=== PATIENT | female | born 1975 | race Caucasian/White ===

== ENCOUNTER 2023-12-17 10:21 | Outpatient (CLI) | payer BC, SELFPAY ==
--- OUTSIDE RECORDS SUMMARY | 2023-12-17 10:26 | XMS_ITS | Clinical Summary ---
Author Name Unknown Organization [facility] Address [address] [place] [address] Care Team Providers Care Wire Dropper Name Role Phone Kathia Montoya D.O. Primary Care Provider Source Comments Patient records contain information from all sites at [facility]. For routine questions regarding patient records, call [phone] during business hours, M-F 8:00 AM - 5:00 PM Central Time. Record requests for emergency care only can be directed to [phone] at any time.[facility] Allergies No known active allergies Medications Medication Sig Dispensed Refills Start Date End Date Status diclofenac sodium (VOLTAREN) 1 % gel Apply 2 g topically 4 (four) times a day for 10 days. Apply to are of pain as needed. 4100 g 0 09/03/2023 Active ketoconazole (NIZORAL) 2 % cream MASSAGE INTO AFFECTED NAILS AND NAIL BED DAILY, ONGOING 0 07/15/2023 Active cyclobenzaprine (FLEXERIL) 10 mg tabletIndications: Pain Low Back Chronic,Lumbago With Sciatica Left Side,Radiculopathy Lumbar,Muscle Spasm Of Back Take 1 tablet (10 mg total) by mouth at bedtime as needed for muscle spasms. 30 tablet 1 09/17/2023 Active gabapentin (NEURONTIN) 300 mg capsuleIndications :Pain Low Back Chronic,Lumbago With Sciatica Left Side,Radiculopathy Lumbar Day one to 3 -oneat hs Day 3 and 5 increase one twice a day Day 6 one every 8 hours 90 capsule 3 09/17/2023 Active naproxen (NAPROSYN) 500 mg tabletIndications: Pain Low Back Chronic,Lumbago With Sciatica Left Side,Radiculopathy Lumbar Take 1 tablet (500 mg total) by mouth 2 (two) times a day with meals. 60 tablet 11 09/17/2023 09/16/2024 Active lidocaine (LIDODERM) 5 % adhesive patch,medicated Place 1 patch on the skin daily. Apply to area of pain as needed . 90 patch 0 09/03/2023 12/02/2023 Active Problems Problem Noted Date Diagnosed Date Depression Major One Episode Mild 08/16/2009 Overview: DEPRESS DISORDER-MILD Encounters Date Type Department Care Team Description 10/18/2023 Orders Only Department of Family Medicine, [facility], in [place], [place] [address] [place] [phone] Kathia Montoya D.OMaryse 10/17/2023 Clinical Communication Department of Family Medicine, [facility], in [place], [place] [address] [place] [phone] Kathia Montoya D.OMaryse 10/11/2023 Orders Only Department of Pain Medicine in [place], [place] [address] [place] [address] Fidelina Gomez RSara Pain Low Back Chronic (Primary Dx) 10/07/2023 12:53 PM AIRPORT TRAFFIC CONTROLLER - 10/07/2023 11:59 PM AIRPORT TRAFFIC CONTROLLER Hospital Encounter Department of Radiology in [place], [place] [address] [place] [phone] Kathia Montoya D.O. Pain Low Back Chronic; Lumbago With Sciatica Left Side; Radiculopathy Lumbar Discharge Disposition: Home or Self Care 09/17/2023 9:14 AM AIRPORT TRAFFIC CONTROLLER - 09/17/2023 11:59 PM AIRPORT TRAFFIC CONTROLLER Hospital Encounter Department of Radiology in [place], [place] [address] [place] [phone] Kathia Montoya D.OMaryse Pain Low Back Chronic; Lumbago With Sciatica Left Side; Radiculopathy Lumbar Discharge Disposition: Home or Self Care 09/17/2023 8:30 AM AIRPORT TRAFFIC CONTROLLER Office Visit Department of Family Medicine, [facility], in [place], [place] [address] [place] [phone] Kathia Montoya D.O. Pain Low Back Chronic (Primary Dx); Lumbago With Sciatica Left Side; Radiculopathy Lumbar; Muscle Spasm Of Back; Screening Mammogram Breast Cancer; Screening Cancer Colon; Need Vaccine Immunization Herpes Zoster; Fatigue; Wellness Screening from Last 3 Months Immunizations Name Administration Dates Next Due DTaP (Infanrix, Tripedia) 03/02/2008 Influenza, Unspecified 09/15/2007 RZV (SHINGRIX) 09/17/2023 Td (Adult), adsorbed 03/02/2008 Family History Medical History Relation Name Comments Diabetes Brother Schizophrenia Brother Suicide Father Breast cancer Grandmother 1 paternal Colon cancer Grandmother 2 maternal Relation Name Status Comments Brother Father Grandmother 1 paternal Grandmother 2 maternal Mother Alive Social History Tobacco Use Types Packs/Day Years Used Date Smoking Tobacco: Former Passive Smoke Exposure: Never Smokeless Tobacco: Never Tobacco Cessation:Counseling Given: Not Answered Alcohol Use Standard Drinks/Week Comments Yes 1 (1 standard drink = 0.6 oz pur e alcohol) PHQ-2 Answer Date Recorded PHQ-2 Score 0 09/17/2023 Depression Answer Date Recor ded PHQ-9 Total Score (max 27) 1 09/17 Nutrition Answer Date Recorded Nutrition: EVOO Fat Source Unknown 09/03 Nutrition: Servings of Fruits/Vegetables per Day Not on file 09/03/2023 Dental Answer Date Recorded Dental: Regular Dentist Unknown 09/03/20 Sex and Gender Information Value Date Recorded Sex Assigned at Not on file Gender Identity Not on file Sexual Orientation Not on file Last Filed Vital Signs Vital Sign Reading Time Taken Comments Blood Pressure 120/85 09/17/2023 8:11 AM AIRPORT TRAFFIC CONTROLLER Pulse 98 09/17/2023 8:11 AM AIRPORT TRAFFIC CONTROLLER Temperature 36.1 ??C (96.9 ??F) 09/17/2023 8:11 AM CS T Respiratory Rate 14 09/17/2023 8:11 AM AIRPORT TRAFFIC CONTROLLER Oxygen Saturation 99% 09/03/2023 9:44 AM CDT Inhaled Oxygen Concentration - - Weight 75.6 kg (166 lb 10.7 oz) 09/17/2023 8:11 AM AIRPORT TRAFFIC CONTROLLER Height 164 cm (5' 4.57) 09/17/2023 8:11 AM AIRPORT TRAFFIC CONTROLLER Body Mass Index 28.11 09/17/2023 8:11 AM AIRPORT TRAFFIC CONTROLLER Plan of Treatment Health Maintenance Due Date Last Done Comments CT Colonography 1973 Cologuard 1973 Colonoscopy 1973 Colorectal Cancer Screening 1973 FIT 1973 Fasting Glucose for Diabetes Screening 1973 Hepatitis B Vaccines (1 of 3 - 3-dose series) 1973 Lipid (Cholesterol) Screening 1973 Mammogram 1973 Cervical Cancer Screening 03/17/2023 03/17/2020, Zoster Vaccines (2 of 2) 11/12/2023 09/17/2023 Depression Monitoring (PHQ-9) 01/16/2024 09/17/2023 Influenza Vaccine (#1) 2024 7, 08/22/2016, 08/24/2015, Additional history exists Postponed from 08/04/2023 (Patient Refused) COVID-19 Vaccine (#1) 09/17/2024 Postpo lamar from 1973 (Patient Refused) HIV Screening 09/17/2024 Postponed from 1973 (Patient Refused) Hepatitis C Screening 09/17/2024 Postpo lamar from 1973 (Patient Refused) DTaP,Tdap,and Td Vaccines (4 - Td or Tdap) 03/17/2030 03/17/2020, 03/02/2008, 03/02/2008 Pneumococcal vaccine (0-64 years) Aged Out No longer eligible based on patient's age to complete this topic Procedures Procedure Name Priority Date/Time Associated Diagnosis Comments MR LUMBAR SPINE WITHOUT IV CONTRAST RAD - Routine (most inpatients and all outpatients) 10/07/2023 2:10 PM AIRPORT TRAFFIC CONTROLLER Pain Low Back Chronic Lumbago With Sciatica Left Side Radiculopathy Lumbar DX LUMBAR SPINE 2-3 VIEWS RAD - Routine (most inpatients and all outpatients) 09/17/2023 9:28 AM AIRPORT TRAFFIC CONTROLLER Pain Low Back Chronic Lumbago With Sciatica Left Side Radiculopathy Lumbar from Last 3 Months Results * MR Lumbar Spine without IV Contrast (10/07/2023 2:10 PM AIRPORT TRAFFIC CONTROLLER) Anatomical Region Laterality Modality Lumbar Spine, Neuroradiology RST LOS, Neuroradiology ARZ LOS, Neuroradiology FLA LOS N/A Magnetic Resonance 10/07/2023 2:37 PM AIRPORT TRAFFIC CONTROLLER Impressions 10/07/2023 2:45 PM AIRPORT TRAFFIC CONTROLLER 1. Left central disc extrusion at L5-S1 results in effacement of the left lateral recess and mass effect on the traversing left S1 nerve root. Narrative 10/07/2023 2:45 PM AIRPORT TRAFFIC CONTROLLER EXAM: ??MR LUMBAR SPINE WITHOUT IV CONTRAST COMPARISON: ??None FINDINGS: ?? L2-3: ??Diffuse disc bulge. Moderate bilateral facet arthritis. No neuroforaminal or spinal canal stenosis. L3-4: ??Diffuse disc bulge. Moderate bilateral facet arthritis. No neuroforaminal or spinal canal stenosis. L4-5: ??Diffuse disc bulge. Moderate bilateral facet osteoarthritis. No neuroforaminal or spinal canal stenosis. L5-S1: ??Diffuse disc bulge with caudally directed left central disc extrusion which effaces the left lateral recess and exerts mass effect on the traversing S1 nerve root. Alignment: ??Normal Bone Marrow: ??Normal Conus: ??Normal termination Extra-spinal Findings: ??No significant incidental findings For the purpose of this report, 5 lumbar type vertebral bodies are assumed. ??Close radiographic correlation recommended prior to any spinal intervention or surgery. Procedure Note Jorge Ruth M.D. - 10/07/2023 EXAM: MR LUMBAR SPINE WITHOUT IV CONTRAST COMPARISON: None FINDINGS: L2-3: Diffuse disc bulge. Moderate bilateral facet arthritis. Noneuroforaminal or spinal canal stenosis. L3-4: Diffuse disc bulge. Moderate bilateral facet arthritis. Noneuroforaminal or spinal canal stenosis. L4-5: Diffuse disc bulge. Moderate bilateral facet osteoarthritis. Noneuroforaminal or spinal canal stenosis. L5-S1: Diffuse disc bulge with caudally directed left central discextrusion which effaces the left lateral recess and exerts mass effect onthe traversing S1 nerve root. Alignment: Normal Bone Marrow: Normal Conus: Normal termination Extra-spinal Findings: No significant incidental findings For the purpose of this report, 5 lumbar type vertebral bodies areassumed. Close radiographic correlation recommended prior to any spinalintervention or surgery. IMPRESSION: 1. Left central disc extrusion at L5-S1 results in effacement of the leftlateral recess and mass effect on the traversing left S1 nerve root. Kathia Montoya D.O. IMG MRI PROCEDURES * DX Lumbar Spine 2-3 Views (09/17/2023 9:28 AM AIRPORT TRAFFIC CONTROLLER) Anatomical Region Laterality Modality Lumbar Spine, Musculoskeleta l RST LOS, Neuroradiology ARZ LOS, Muskuloskeletal FLA LOS N/A Digital Radiography 09/17/2023 9:32 AM AIRPORT TRAFFIC CONTROLLER Impressions 09/17/2023 9:34 AM AIRPORT TRAFFIC CONTROLLER Images are interpreted without comparison. 5 lumbar type vertebral bodies are noted. Minor levoconvex curvature. Maintenance of the usual lumbar lordosis. No listhesis. Vertebral body heights are normal. Minor intervertebral disc height loss L5-S1. No acute abnormality. Narrative 09/17/2023 9:34 AM AIRPORT TRAFFIC CONTROLLER EXAM: DX LUMBAR SPINE 2-3 VIEWS Procedure Note Otis Billings M.D. - 09/17/2023 EXAM: DX LUMBAR SPINE 2-3 VIEWS IMPRESSION: Images are interpreted without comparison. 5 lumbar type vertebral bodiesare noted. Minor levoconvex curvature. Maintenance of the usual lumbarlordosis. No listhesis. Vertebral body heights are normal. Minorintervertebral disc height loss L5-S1. No acute abnormality. Kathia Montoya D.O. IMG DIAGNOSTIC IMAGI NG PROCEDURES from Last 3 Months Care Teams Wire Dropper Relationship Specialty Start Date End Date Kathia Montoya D.O. [address] [phone] PCP - General Family Medicine 09/05/23
--- OUTSIDE RECORDS SUMMARY | 2023-12-17 10:26 | XMS_ITS | Encounter Summary ---
Author Name Unknown Organization [facility] Address [address] [place] [address] Care Team Providers Care Compliance Counsel Name Role Phone Kathia Montoya D.O. Primary Care Provider [phone] Reason for Referral * MRI/CAT/PET Scan (Routine) - Closed Specialty Diagnoses / Procedures Referred By Contac t Referred To Contact Radiology Diagnoses Pain Low Back Chronic Lumbago With Sciatica Left Side Radiculopathy Lumbar Procedures MR Lumbar Spine without IV Contrast MR Lumbar Spine without and with IV Contrast Kathia Montoya D.O. [address] [place] [phone] [facility] Region Referral ID Status Reason Start Date Expiration Date Visits Re quested Visits Authorized [id number] Closed 09/17/2023 09/16/2024 1 1 OR CLERK Reason for Visit * MRI/CAT/PET Scan (Routine) - Closed Specialty Diagnoses / Procedures Referred By Contac t Referred To Contact Radiology Diagnoses Pain Low Back Chronic Lumbago With Sciatica Left Side Radiculopathy Lumbar Procedures MR Lumbar Spine without IV Contrast MR Lumbar Spine without and with IV Contrast Kathia Montoya D.O. [address] [place] [phone] [facility] Region Referral ID Status Reason Start Date Expiration Date Visits Re quested Visits Authorized [id number] Closed 09/17/2023 09/16/2024 1 1 Encounter Details Date Type Department Care Team (Latest Contact Info) Description 10/07/2023 12:53 PM LIQUOR CLERK - 10/07/2023 11:59 PM LIQUOR CLERK Hospital Encounter Department of Radiology in [place], [place] [address] [place] [phone] Kathia Montoya D.O. [address] [place] [phone] Pain Low Back Chronic; Lumbago With Sciatica Left Side; Radiculopathy Lumbar Discharge Disposition: Home or Self Care Social History Tobacco Use Types Packs/Day Years Used Date Smoking Tobacco: Former Passive Smoke Exposure: Never Smokeless Tobacco: Never Alcohol Use Standard Drinks/Week Comments Yes 1 [...] Date Recorded Dental: Regular Dentist Unknown 09/03/20 23 Sex and Gender Information Value Date Recorded Sex Assigned at Not on file Gender Identity Not on file Sexual Orientation Not on file documented as of this encounter Medications at Time of Discharge Medication Sig Dispensed Refills Start Date End Date cyclobenzaprine (FLEXERIL) 10 mg tabletIndications:Pain Low Back Chronic,Lumbago With Sciatica Left Side,Radiculopathy Lumbar,Muscle Spasm Of Back Take 1 tablet (10 mg total) by mouth at bedtime as needed for muscle spasms. 30 tablet 1 09/17/2023 gabapentin (NEURONTIN) 300 mg capsuleIndications:Valerie n Low Back Chronic,Lumbago With Sciatica Left Side,Radiculopathy Lumbar Day one to 3 -oneat hs Day 3 and 5 increase one twice a day Day 6 one every 8 hours 90 capsule 3 09/17/2023 ketoconazole (NIZORAL) 2 % cream MASSAGE INTO AFFECTED NAILS AND NAIL BED DAILY, ONGOING 0 07/15/2023 naproxen (NAPROSYN) 500 mg tabletIndications:Pain Low Back Chronic,Lumbago With Sciatica Left Side,Radiculopathy Lumbar Take 1 tablet (500 mg total) by mouth 2 (two) times a day with meals. 60 tablet 11 09/17/2023 09/16/2024 lidocaine (LIDODERM) 5 % adhesive patch,medicated Place 1 patch on the skin daily. Apply to area of pain as needed . 90 patch 0 09/03/2023 12/02/2023 documented as of this encounter Miscellaneous Notes * Result Encounter Note - Kathia Montoya D.O. - 10/10/2023 11:23 AM LIQUOR CLERK Please call pt has on mri - left disc herniated affecting left side. Keep appointment with spine clinic. OR CLERK documented in this encounter Plan of Treatment Not on file documented as of this encounter Procedures Procedure Name Priority Date/Time Associated Diagnosis Comments MR LUMBAR SPINE WITHOUT IV CONTRAST RAD - Routine (most inpatients and all outpatients) 10/07/2023 2:10 PM LIQUOR CLERK Pain Low Back Chronic Lumbago With Sciatica Left Side Radiculopathy Lumbar documented in this encounter Results * MR Lumbar Spine without IV Contrast (10/07/2023 2:10 PM LIQUOR CLERK) Anatomical Region Laterality Modality Lumbar Spine, Neuroradiology RST [facility], Neuroradiology ARZ [facility], Neuroradiology FLA [facility] N/A Magnetic Resonance 10/07/2023 2:37 PM LIQUOR CLERK Impressions 10/07/2023 2:45 PM LIQUOR CLERK 1. Left central disc extrusion at L5-S1 results in effacement of the left lateral recess and mass effect on the traversing left S1 nerve root. Narrative 10/07/2023 2:45 PM LIQUOR CLERK EXAM: ??MR LUMBAR SPINE WITHOUT IV CONTRAST [...] root. Kathia Montoya D.O. IMG MRI PROCEDURES documented in this encounter Visit Diagnoses Diagnosis Pain Low Back Chronic Lumbago With Sciatica Left Side Radiculopathy Lumbar documented in this encounter Additional Health Concerns Assessment Noted Time PHQ-9 Depression Total Score: 1 09/17/20 23 8:10 AM LIQUOR CLERK documented as of this encounter Care Teams Compliance Counsel Relationship Specialty Start Date End Date Kathia Montoya D.O. [address] [place] [phone] PCP - General Family Medicine 09/05/23 documented as of this encounter
--- OUTSIDE RECORDS SUMMARY | 2023-12-17 10:26 | XMS_ITS | Encounter Summary ---
Author Name Unknown Organization [facility] Address [address] [place] [id number] Care Team Providers Care Business Technology Architect Name Role Phone None Reported, Pcp Primary Care Provider Unavail able Reason for Visit * Reason Comments Back Pain Encounter Details Date Type Department Care Team (Late st Contact Info) Description 09/03/2023 9:38 AM CDT - 09/03/2023 1:38 PM CDT Emergency [facility] Emergency Department [address] [place] [phone] Raulito Gardner P.A.-C. [address] [place] [phone] Pain Back (Primary Dx) Discharge Disposition: Home or Self Care Social History Tobacco Use Types Packs/Day Years Used Date Smoking Tobacco: Former Nutrition Answer Date Recorded Nutrition: EVOO Fat Source Unknown 09/03 Nutrition: Servings of Fruits/Vegetables per Day Not on file 09/03/2023 Dental Answer Date Recorded Dental: Regular Dentist Unknown 09/03/20 23 Sex and Gender Information Value Date Recorded Sex Assigned at Not on file Gender Identity Not on file Sexual Orientation Not on file documented as of this encounter Last Filed Vital Signs Vital Sign Reading Time Taken Comments Blood Pressure 141/95 09/03/2023 9:44 AM CDT Pulse 90 09/03/2023 9:44 AM CDT Temperature 36.7 ??C (98.1 ??F) 09/03/2023 9:44 AM CD T Respiratory Rate 17 09/03/2023 9:44 AM CDT Oxygen Saturation 99% 09/03/2023 9:44 AM CDT Inhaled Oxygen Concentration - - Weight 76.7 kg (169 lb 1.5 oz) 09/03/2023 9:40 A M CDT Height - - Body Mass Index 28.52 10/26/2014 1:21 PM STRAIGHT CUTTER documented in this encounter Discharge Instructions * Discharge Instructions* Raulito Gardner P.A.-C. - 09/03/2023 1:32 PM CDT I am sorry that you have been having some pain, but I am glad you are feeling better. As we discussed, this is most likely related to sciatica. Feel reassured that your exam otherwise is reassuring For this, we recommend Take naprosyn every 12 hours as needed for pain. Naprosyn is the antiinflammatory that builds in your system, so even if the first few doses do not seem to be helping, they should start to help over the next few days Take prednisone once a day for 5 days. This is a steroid that should help with inflammation Take tylenol as needed for pain Use voltaren gel and or lidoderm patches as needed for pain Take Flexeril every 12 hours or nightly as needed. This is a muscle relaxer that may make you droswsy so do not work, drive a car, or use heavy machinery while using. However, if can be helpful at night. Follow up with your primary care provider As always, if your symptoms worsen, or if you experience new symptoms, please seek immediate medical help. documented in this encounter Medications at Time of Discharge Medication Sig Dispensed Refills Start Date End Date diclofenac sodium (VOLTAREN) 1 % gel Apply 2 g topically 4 (four) times a day for 10 days. Apply to are of pain as needed. 4100 g 0 09/03/2023 ketoconazole (NIZORAL) 2 % cream MASSAGE INTO AFFECTED NAILS AND NAIL BED DAILY, ONGOING 0 07/15/2023 lidocaine (LIDODERM) 5 % adhesive patch,medicated Place 1 patch on the skin daily. Apply to area of pain as needed . 90 patch 0 09/03/2023 12/02/2023 predniSONE (DELTASONE) 20 mg tablet Take 1 tablet (20 mg total) by mouth daily for 5 days. 5 tablet 0 09/03/2023 09/08/2023 cyclobenzaprine (FLEXERIL) 10 mg tablet Take 1 tablet (10 mg total) by mouth at bedtime as needed for muscle spasms for up to 20 days. 20 tablet 0 09/03/2023 09/17/2023 naproxen (NAPROSYN) 500 mg tablet Take 1 tablet (500 mg total) by mouth 2 (two) times a day with meals. 60 tablet 11 09/03/2023 09/17/2023 documented as of this encounter Consult Notes * Janay Field PPantera., LoisP.T. - 09/03/2023 1:26 PM CDT Physical Therapy Evaluation and Treatment - Emergency Department SUBJECTIVE Patient's Name: Mariah Patel Referring/Attending Provider: Raulito Gardner P.A.-C. Visit Diagnosis: 1. Pain Back Reason for referral: PT evaluate and treat, emergency medicine Onset Date: History of Present Illness:Patient is a 48-year-old female who presents to the emergency departmentwith back pain which is now radiating down her left leg. Pain started about 1 month ago when she was moving furniture. See EMR for further information. Patient presents with complaints of back pain that is now radiating into her left leg. Payor: [facility] / Plan: [employer] / Product Type: PPO / PERTINENT MEDICAL / SURGICAL HISTORY: Patient Active Problem List Diagnosis Depression Major One Episode Mild (HCC) No past surgical history on file. Mariah Patel is a 48 y.o. female who presents to the Emergency Department with c/o back pain. Family/Caregiver Present: Yes (: Sindi) Patient/Caregiver Goals: decrease pain Patient Comments: Upon arrival, patient is agreeable for physical therapy evaluation. Her pain is currently rated 5/10 and is described as nagging, dull, sharp for the first time last night. Endorsesnumbness/tingling down left calf into the big toe. Pain started approximately 1 month ago when she was moving furniture. Pain is radiating down her left lower extremity since Saturday. Denies fall, bowel and bladder changes. Aggravating factors: sitting/standing for prolonged positions Relieving factors: Medications (patient ran out which is why she came to the ED), lying in prone with arms straight. Attempted to do some stretching/mobility exercises at home. Primary service was contacted and patient's status was discussed, Patient's nurse was contacted andpatient's status was discussed Prior Level of Function: Prior Function/Occupational Profile Lives With: Spouse ADL Assistance: Independent IADL/Homemaking Assistance: Independent Driving: Independent Prior Mobility/Functional Transfers Level of [place]: Independent OBJECTIVE Diagnostic Tests: Imaging No results found. Gait and Transfers: Gait not formally assessed Posture and Observation: normal Neuro Screen: Lower extremity sensation intact to light touch throughout except last L4 dermatome Range of Motion: Lumbar: Pain with flexion and side bending left Direction preference: extension (centralization) Limited flexion range of motion due to pain Hip: within normal limits throughout Special tests: Examined and normal. Mild guarding on the left due to pain Bed Mobility - Supine to Sit Level of Assistance: Independent Bed Mobility - Sit to Supine Level of Assistance: Independent Sit to Stand Transfers Transfer Surface: Bed Level of Assistance: Independent Assessment/Delivery: Assessed Stand to Sit Transfers Level of Assistance: Independent Assessment/Delivery: Assessed Outcome Measures: [facility] Mobility: 1. Turning from your back to your side while in a flat bed without using bedrails?: None 2. Moving from lying on your back to sitting on the side of a flat bed without using bedrails?: None 3. Moving to and from a bed to a chair (including a wheelchair)?: None 4. Standing up from a chair using your arms (e.g., wheelchair, or bedside chair)?: None 5. To walk in hospital room?: None 6. Climbing 3-5 steps with a railing?: None [facility] Basic Mobility (V.2) Raw Score: 24 [facility] Basic Mobility (V.2) Standardized Score: 57.68 Interpretation: Clinicians answer the [facility] Inpatient Short Form based on observed patient activity and/or clinical judgement (ie. patient can be scored without physically performing each activity) According to scoring guidelines: Those going to home had an average score of 20.1 Those going home with home care had an average score of 17.9 Those going to SNF had an average score of 14 Those going to IRF had an average score of 13.6 Those going to a LTAC had an average score of 11.5 TREATMENT Access Code: [email or web address] URL: [email or web address] Date: 09/03/2023 Prepared by: Janay Field Exercises - Supine Lower Trunk Rotation - 1 x daily - 7 x weekly - 1 sets - 10 reps - Supine Pelvic Tilt - 2 x daily - 7 x weekly - 1 sets - 10 reps - Supine Piriformis Stretch with Leg Straight - 2 x daily - 7 x weekly - 1 sets - 1-2 reps - 30-60 seconds hold - Child's Pose with Sidebending - 2 x daily - 7 x weekly - 1 sets - 1-2 reps - Cat Cow - 2 x daily - 7 x weekly - 1 sets - 10 reps - Supine LE Neural Mobilization - 2 x daily - 7 x weekly - 1 sets - 3-5 reps Home Exercise Program/Education: Patient instructed in home exercise program focused on lumbar mobility/stretching. Patient was provided verbal cueing and physical cueing for proper independent completion of exercises by end of session. Rationale of home exercises and expected outcomes were discussed. All patient questions were answered to the best of my ability. The following patient education materials were provided today: [employer]: Paper copy provided to patient Instructed patient on a icing parameters to decrease inflammation and for pain modulation. Ice 3 to4 times a day for 10-15 minutes. Allow skin to return back to normal temperature prior to administration of ice. Heat can be utilized prior to stretching for muscle relaxation and to increased blood circulation. The following education provided today: Exercise Education: - remain active Educated patient on role of physical therapy in management of symptoms and progression of focus from gentle mobility to core strengthening when appropriate. Recommended for patient to follow up with outpatient physical therapy for appropriate progression of home exercise program. Assessment Clinical Impression: Mariah Patel presents to the emergency department and physical therapy was consulted for back pain.Back pain started 1 month ago when she was moving furniture. Since last Saturday, she endorses left radicular symptoms. Examination findings are consistent with back pain with mobility deficits, left ra diculopathy, and extension preference. Examination findings were significant for mobility deficits/limited range of motion , weakness or reduced tissue capacity to tolerate loads, and reduced capacity/tolerance for exercise/activity. Functional deficits include difficulty with functional transfers and ambulation. Patient would benefit from further skilled physical therapy in order to improve range of motion/mobility, improve strength to allow for increased capacity of tissues to tolerate loads,and develop a plan of home exercises to improve their range of motion, fitness, strength, and/or tolerance for activity. The patient was instructed in a home program. The patient tolerated the above exercises well. Patient does not have primary care established and is planning on establishing primary care. She will follow up with outpatient PT as able. Rehab Potential: Ms. Patel has Excellent potential to achieve established physical therapy goals within the time frame outlined below, provided she actively participates in her physical therapy treatment plan and home program. Tiered PT Evaluation Codes: Comorbid Conditions: (See EMR for further information) Personal Factors: Body habitus Comorbid Conditions: (See EMR for further information) Examination elements: 4+ Clinical Presentation: Evolving Clinical Decision Making: Moderate complexity clinical decision making Barriers to Discharge Home: Barriers to Discharge Home: None Discharge Therapy Needs - PT: Ongoing skilled physical therapy (Recommended following up with outpatient physical therapy) Progress: All PT goals achieved Functional Goals and Timeframes: PT Goal #1: Patient will be able to teach back HEP without any verbal cues to continue performing exercises independently at home. PT Goal #1 Date: 09/03/23 PT Goal #1 Status: Achieved Plan Mariah Patel was educated regarding evaluative findings, diagnosis, prognosis, potential risks and benefits of rehabilitation interventions. A collaborative effort was used to establish goals and plan of care. She was informed of her right to make decisions regarding her care, including refusal of examination or treatment or selection of therapy services from another provider if desired. The treatment plan may be progressed or modified based upon her response to treatment. Treatment Plan: PT Frequency: One-time visit PT Duration: Plan: Discontinue PT PT Plan Comments: One time visit, emergency medicine Treatment interventions may include: Treatment/Interventions: Therapeutic exercise, Therapeutic functional activity, Self-care/home management Time Spent with Patient Evaluations PT Eval - Mod Complexity: 8 min Therapeutic Interventions Therapeutic Exercise (min): 15 min Time Tracking Total Timed Units (min): 15 min Total Treatment Time (min): 23 min Janay Field P.T., D.P.T. documented in this encounter ED Notes * Raulito Gardner P.A.-C. - 09/03/2023 1:28 PM CDT CHIEF COMPLAINT Back Pain HPI Mariah Patel is a 48 y.o. female with a medical history of depression, presenting to the rst-ER with complaints of back pain. The patient complains of left-sided lower back pain that began about a month ago, and has been constant and worsening since. Patient reports she has been seen by a chiropractor, as well as an urgent care provider, without complete relief. She denies any associated symptoms including no numbness, tingling, incontinence, saddle anesthesia, or focal weakness, nor any recent fever, chills, shortness of breath, chest pain, nausea, emesis, abdominal pain, urinary symptoms or other complaints. Currently, they rate their pain as a 7/10, with a sharp electric quality, and radiation into outer left leg. They note movement as provoking, while denying any palliating factors History provided by: Patient, and medical records MEDICAL HISTORY No past medical history on file. SURGICAL HISTORY No past surgical history on file. FAMILY HISTORY Family History Problem Relation Age of Onset Diabetes Brother Schizophrenia Brother Breast cancer Grandmother Colon cancer Grandmother 60 SOCIAL HISTORY Social History Socioeconomic History Marital status: Tobacco Use Smoking status: Former REVIEW OF SYSTEMS MSK: Back pain ? PHYSICAL EXAM Vitals: 09/03/23 0944 BP: (!) 141/95 Pulse: 90 Resp: 17 Temp: 36.7 ??C SpO2: 99% Constitutional: Nursing note and vitals reviewed. HENT: Head: Normocephalic and atraumatic. Mouth/Throat: Mucous membranes are moist. Eyes: Conjunctivae are normal. Neck: No midline spinal tenderness. No paraspinal muscle tenderness. No step offs. No overlying signs of trauma Cardiovascular: Normal rate. Pulmonary/Chest: Effort normal. No tachypnea. Musculoskeletal: Comments: BACK: No midline spinal tenderness. Left lower lumbar into buttock paraspinal muscle tenderness. No step offs. No overlying signs of trauma Neurological: Alert. Skin: Skin is warm and dry. ? DIFFERENTIAL Mariah Patel is a 48 y.o. female with a medical history of depression, presenting to the rst-ER with complaints of back pain. My current working diagnosis is a musculoskeletal strain vs spasm secondary to their history of lifting and physical exam with reproducible tenderness. However, I did think about a differential including sciatica, herniated disk, overuse, stress fracture, zoster, rib injury, nephrolithiasis, pyelo, and much less likely of cauda equina syndrome, infection, malignancy, traumatic injury, ankylosing spondylitis. However, these are extremely unlikely as the patient denies any incontinence, paresthesias, or saddle anesthesia, and secondary to an exam without any muscle weakness, sensation loss, abnormal I did consider getting an MRI given the patient's back pain. However given lack of red flag symptoms along with otherwise reassuring exam we will defer at this time. ASSESSMENT & PLAN Physical therapy saw patient, and we will discharge home with exercises. do believe that she needs physical therapy as an outpatient. However needs to get primary care provider in the meantime. In the meantime we will get symptomatic cares, and close follow up. Please see the ED course for additional evaluation, imaging and laboratory findings, and further medical decision-making. ED COURSE ED Course as of 09/03/231953e Sep 03, 2023 1218 I reviewed the patient's chart. This includes but is not limited to prior inpatient records, prior outpatient and office records, prior radiology scans, an outside ED reports. 1220 I met with the patient for an initial history and physical exam 1233 Spoke with PT 1332 I rechecked on the patient. PT has seen patient., recommends discharge pcp follow up and PT 1332 At discharge, patient was tolerating a regular diet, = their symptoms were well-controlled, and they were able to void spontaneously. Patient was educated and provided information on their diagnosis. Patients will follow up with their primary care provider as needed on an out patient basis. Strict return precautions were discussed. Patient verbalizes understanding, agrees to the plan, and acknowledges to return with new or worsening symptoms. patient tolerating oral medications and will besent home with similar cares. Medications and side effects were also discussed with patient, and itis recommended that they read all package inserts to the meds. Final Diagnoses: as of 09/03/231953 Pain Back DIAGNOSIS Pain Back Other orders - diclofenac sodium (VOLTAREN) 1 % gel - lidocaine (LIDODERM) 5 % adhesive patch,medicated - cyclobenzaprine (FLEXERIL) 10 mg tablet - naproxen (NAPROSYN) 500 mg tablet - predniSONE (DELTASONE) 20 mg tablet ? Raulito Gardner PA-C pager: [phone] [facility] Emergency Department [address] [facility] [phone] Raulito Gardner P.A.-C. 09/03/231953 * Francie Israel R.N. - 09/03/2023 9:42 AM CDT Patient presents with complaints of back pain that is now radiating into her left leg. She states she was moving furniture about a month ago and the pain started the next day. Taking Naproxen and Cyclobenzaprine for the pain, her prescription ended yesterday. States she took four Ibuprofen this morning. Francie Israel R.N. 09/03/239[address] documented in this encounter Plan of Treatment Not on file documented as of this encounter Visit Diagnoses Diagnosis Pain Back- Primary documented in this encounter Administered Medications Inactive Administered Medications - up to 3 most recent administrations Medication Order MAR Action Action Date Dose Rate Site ketorolac injection 15 mg (TORADOL) 15 mg, intramuscular, Once, On Sat09/03/23 at 1233, For 1 dose, Adult IV push rate: Over 15 seconds. Peds IV push rate: Over 1 minute. Doses > 15 mg IV/IM are discouraged due to lack of additional analgesic benefit. Given 09/03/2023 1:02 PM CDT 15 mg Right Deltoid lidocaine 5 % 1 patch (LIDODERM) 1 patch, transdermal, Administer over 12 Hours, Once, On Sat09/03/23 at 1233, For 1 dose, Remove after 12 hours. Medication Applied 09/03/2023 1:02 PM CDT 1 patch Lower Back documented in this encounter Active and Recently Administered Medications Times are shown in CDT. Scheduled Medication Order 09/01/2023 09/02/2023 09/03/2023 ketorolac injection 15 mg (TORADOL) (COMPLETED) 15 mg, intramuscular, Once, On Sat09/03/23 at 1233, For 1 dose, Adult IV push rate: Over 15 seconds. Peds IV push rate: Over 1 minute. Doses > 15 mg IV/IM are discouraged due to lack of additional analgesic benefit. 1302 (Given - Provid er: Autumn Siddiqui R.N.) lidocaine 5 % 1 patch (LIDODERM) 1 patch, transdermal, Administer over 12 Hours, Once, On Sat09/03/23 at 1233, For 1 dose, Remove after 12 hours. 1302 (Medication Ilene lied - Provider: Autumn Siddiqui R.N.)1338 (Due: Medication Removed - Provider: Discharge Provider, Automatic - Comment: Time automatically adjusted from order being discontinued) documented in this encounter Additional Health Concerns Assessment Noted Time PHQ-9 Depression Total Score: 6 09/30/20 12 2:01 PM STRAIGHT CUTTER documented as of this encounter Care Teams Business Technology Architect Relationship Specialty Start Date End Date None Reported, Pcp PCP - General Family Medicine 09/03/23 09/04/23 documented as of this encounter
--- OUTSIDE RECORDS SUMMARY | 2023-12-17 10:26 | XMS_ITS | Encounter Summary ---
Author Name Unknown Organization [facility] Address [address] [place] [address] Care Team Providers Care Singing Teacher Name Role Phone Kathia Montoya D.O. Primary Care Provider Encounter Details Date Type Department Care Team (Late st Contact Info) Description 09/05/2023 Clinical Communication Department of Family Medicine, [facility], in [place], [place] [address], [place] [phone] Kathia Montoya D.O. [address] [place] [phone] Social History Tobacco Use Types Packs/Day Years Used Date Smoking Tobacco: Former PHQ-2 Answer Date Recorded PHQ-2 Score 0 [...] on file documented as of this encounter Miscellaneous Notes * Telephone Encounter - Princess Adam Cazares - 09/05/2023 3:38 PM CDT SUBJECTIVE CHIEF COMPLAINT / REASON FOR CALL Medication refill Information Discussed Message from provider given, patient has upcoming appt. No questions or concern PLAN Disposition/Recommendation: n/a Information/Education: patient/caller able to teach back Caller agreeable to plan of care: yes The following references were used: none * Telephone Encounter - Kathia Montoya D.O. - 09/05/2023 3:17 PM CDT Pt has not been seen since 2013 in FAMILY medicine. She was seen at [facility] on 09-03 and flexeril 10 mg one at bedtime as need 20 tablets . Give diclofenac and lidocaine and naprosyn and prednisone. OPERATOR documented in this encounter Plan of Treatment Not on file documented as of this encounter Visit Diagnoses Not on filedocumented in this encounter Additional Health Concerns Assessment Noted Time PHQ-9 Depression Total Score: 6 09/30/20 12 2:01 PM PARA OPERATOR documented as of this encounter Care Teams Singing Teacher Relationship Specialty Start Date End Date Kathia Montoya D.O. [address] [place] [phone] PCP - General Family Medicine 09/05/23 documented as of this encounter
--- OUTSIDE RECORDS SUMMARY | 2023-12-17 10:26 | XMS_ITS | Encounter Summary ---
Author Name Unknown Organization [facility] Address [address] [place] [address] Care Team Providers Care Line Construction Supervisor Name Role Phone Kathia Montoya D.O. Primary Care Provider Reason for Referral * Outpatient (Routine) - Authorized Specialty Diagnoses / Procedures Referred By Contac t Referred To Contact Diagnoses Pain Low Back Chronic Procedures DX Lumbar Spine Flexion Extension 2 Views Jaclyn Reeys APRN, C.N.P. [address] [place] [phone] [facility] Region Referral ID Status Reason Start Date Expiration Date V isits Requested Visits Authorized [id number] Authorized 10/11/2023 10/10/2024 1 1 CASE MAKER Encounter Details Date Type Department Care Team (Late st Contact Info) Description 10/11/2023 Orders Only Department of Pain Medicine in [place], [place] [address] [place] [phone] Fidelina Gomez, R.N. [address] [phone] Pain Low Back Chronic (Primary Dx) Social History Tobacco Use Types Packs/Day Years [...] on file documented as of this encounter Plan of Treatment Scheduled Orders Name Type Priority Associated Diagnoses Orde r Schedule DX Lumbar Spine Flexion Extension 2 Views Imaging RAD - Routine (most inpatients and all outpatients) Pain Low Back Chronic Expected: 10/11/2023 (Approximate), Expires: 01/09/2025 documented as of this encounter Visit Diagnoses Diagnosis Pain Low Back Chronic- Primary documented in this encounter Additional Health Concerns Assessment Noted Time PHQ-9 Depression Total Score: 1 09/17/20 8:10 AM SHOWCASE MAKER documented as of this encounter Care Teams Line Construction Supervisor Relationship Specialty Start Date End Date Kathia Montoya D.O. [address] [place] [phone] PCP - General Family Medicine 09/05/23 documented as of this encounter
--- OUTSIDE RECORDS SUMMARY | 2023-12-17 10:26 | XMS_ITS | Encounter Summary ---
Author Name Unknown Organization [facility] Address [address] [place] [address] Care Team Providers Care Paint Process Engineer Name Role Phone Kathia Montoya D.O. Primary Care Provider Reason for Referral * MRI/CAT/PET Scan (Routine) - Closed Specialty Diagnoses / Procedures Referred By Alexysac t Referred To Contact Radiology Diagnoses Pain Low Back Chronic Lumbago With Sciatica Left Side Radiculopathy Lumbar Procedures MR Lumbar Spine without IV Contrast MR Lumbar Spine without and with IV Contrast Kathia Montoya D.O. [address] [place] [phone] [facility] Region Referral ID Status Reason Start Date Expiration Date Visits Re quested Visits Authorized [id number] Closed 09/17/2023 09/16/2024 1 1 ISHER APPRENTICE * Outpatient (Routine) - Authorized Specialty Diagnoses / Procedures Referred By Contac t Referred To Contact Family Medicine Kathia Montoya D.O. [address] [place] [phone] [facility] Region Referral ID Status Reason Start Date Expiration Date V isits Requested Visits Authorized [id number] Authorized 09/17/2023 09/16/2026 1 1 ISHER APPRENTICE * Outpatient (Routine) - Authorized Specialty Diagnoses / Procedures Referred By Contac t Referred To Contact Diagnoses Screening Mammogram Breast Cancer Procedures BI Breast Screening Bilateral with Tomosynthesis Kathia Montoya D.O. [address] [place] [phone] [facility] Region Referral ID Status Reason Start Date Expiration Date V isits Requested Visits Authorized [id number] Authorized 09/17/2023 09/16/2024 1 1 ISHER APPRENTICE * Outpatient (Routine) - Authorized Specialty Diagnoses / Procedures Referred By Contac t Referred To Contact Pain Medicine Diagnoses Pain Low Back Chronic Lumbago With Sciatica Left Side Radiculopathy Lumbar Muscle Spasm Of Back Kathia Montoya D.O. [address] [place] [phone] [facility] Region Referral ID Status Reason Start Date Expiration Date V isits Requested Visits Authorized [id number] Authorized 09/17/2023 09/16/2024 1 1 ISHER APPRENTICE * Outpatient (Routine) - Closed Specialty Diagnoses / Procedures Referred By Contac t Referred To Contact Diagnoses Pain Low Back Chronic Lumbago With Sciatica Left Side Radiculopathy Lumbar Procedures DX Lumbar Spine 2-3 Views Kathia Montoya D.O. [address] [place] [phone] [facility] Region Referral ID Status Reason Start Date Expiration Date Visits Re quested Visits Authorized [id number] Closed 09/17/2023 09/16/2024 1 1 ISHER APPRENTICE Reason for Visit * Reason Comments Post Hospital Follow-up sciatica Establish Care * Appointment Request (Routine) - Closed Specialty Diagnoses / Procedures Referred By Contac t Referred To Contact Family Medicine Referral ID Status Reason Start Date Expiration Date Visits Re quested Visits Authorized [id number] Closed 09/05/2023 09/04/2024 1 1 Encounter Details Date Type Department Care Team (Late st Contact Info) Description 09/17/2023 8:30 AM VARNISHER APPRENTICE Office Visit Department of Family Medicine, [facility], in [place], [place] [address] [place] [phone] Kathia Montoya D.O. [address] [place] [phone] Pain Low Back Chronic (Primary Dx); Lumbago With Sciatica Left Side; Radiculopathy Lumbar; Muscle Spasm Of Back; Screening Mammogram Breast Cancer; Screening Cancer Colon; Need Vaccine Immunization Herpes Zoster; Fatigue; Wellness Screening Social History Tobacco Use Types Packs/Day Years [...] Comments Blood Pressure 120/85 09/17/2023 8:11 AM VARNISHER APPRENTICE Pulse 98 09/17/2023 8:11 AM VARNISHER APPRENTICE Temperature 36.1 ??C (96.9 ??F) 09/17/2023 8:11 AM CS T Respiratory Rate 14 09/17/2023 8:11 AM VARNISHER APPRENTICE Oxygen Saturation - - Inhaled Oxygen Concentration - - Weight 75.6 kg (166 lb 10.7 oz) 09/17/2023 8:11 AM VARNISHER APPRENTICE Height 164 cm (5' 4.57) 09/17/2023 8:11 AM VARNISHER APPRENTICE Body Mass Index 28.11 09/17/2023 8:11 AM VARNISHER APPRENTICE documented in this encounter Patient Instructions * Patient Instructions* Kathia Montoya D.O. - 09/17/2023 8:30 AM VARNISHER APPRENTICE Will set up xray and mri Shingles shot today need to get second shot 3months Will come back for pap ISHER APPRENTICE * Attachments The following attachments cannot be sent through Care Everywhere. * Caring for Your Back and Neck (Icelandic) documented in this encounter Progress Notes * Kathia Montoya D.O. - 09/17/2023 8:30 AM CST SUBJECTIVE CHIEF COMPLAINT / REASON FOR VISIT Post Hospital Follow-up (sciatica) and Establish Care Low back pain radiating down entire left leg to left 4th and 5th toe, Lumbar radiculopathy, Muscle spasms of the lumbosacral back. Needs a screening mammogram and also colonoscopy, Shingles vaccine, Increasing fatigue HISTORY OF PRESENT ILLNESS Mariah Patel is a pleasant 48 y.o. female who presents to the clinic today for low back pain for the last several weeks since August. With radiation down left entire leg into 4th and 5th toe and left foot, with numbness and tingling in the entire left leg. Weakness in the entire left leg. Hastried Tylenol, has been to the emergency room and I reviewed the emergency room visit with her. Discussed with patient she has lumbago with left-sided sciatica all the way down into the left foot. The numbness and tingling had increased as had the weakness in the left leg. She has lumbar radiculopathy and it is increasing. We discussed severe muscle spasms lumbosacral spine. Discussed the use of gabapentin, discussed Flexeril for muscle spasms. Discussed the use him Naprosyn to decrease the inflammation. We will get x-ray ruling out compression fracture and the severity of the degenerative disc diseasein the lower back. Then we will do MRI of the lumbosacral spine. Patient has tried chiropractic treatments with no success she has been to the emergency room she has been taking Naprosyn, Tylenol,. Discussed the use of Flexeril for the muscle spasms and discussed it may make her drowsy she may just need to take it at bedtime. Discussed Naprosyn in the GI and renal side effects. Discussed the gabapentin can help the lumbago with sciatica left side, and the lumbar radiculopathy. Discussed screening for colon cancer we will set up a colonoscopy. Discussed screening for breast cancer and we will set up a mammogram and gynecological exam and Papshe will return for those. Discussed shingles vaccine the risks and benefits. Discussed increasing fatigue we will do lab CBC, comprehensive, and free T4 TSH and rule out thyroid disorder. We will get the wellness screening labs the comprehensive and lipid. I reviewed her allergies, past medical history, surgeries, immunizations and family history. Discussed flu and COVID-19 she does not want those today. REVIEW OF SYSTEMS: Constitutional: Positive for fatigue. Genitourinary: - Discussed screening for colon cancer and mammogram. Musculoskeletal: Positive for pain or stiffness in the joints, back pain and muscle pain/stiffness. All other systems reviewed and are negative. The following systems were negative: Skin, Eyes, ENT, Respiratory, Cardiovascular, Gastrointestinal, Genitourinary, Hematologic, Neurological, Psychiatric The following portions of the patient's history were reviewed and updated as appropriate: allergies, current medications, family history, medical history, problem list, surgical history and social history OBJECTIVE BP 120/85 (BP Location: Right arm, Patient Position: Sitting, Cuff Size: Regular) Pulse 98 Temp36.1 ??C (Temporal) Resp 14 Wt 75.6 kg BMI 28.11 kg/m?? PHYSICAL EXAMINATION Vitals reviewed. Constitutional Appearance: Normal appearance. HENT Head: Normocephalic and atraumatic. Right Ear: External ear normal. Left Ear: External ear normal. Nose: Nose normal. Mouth/Throat: Mouth: Mucous membranes are moist. Pharynx: Oropharynx is clear. Eyes Extraocular Movements: Extraocular movements intact. Conjunctiva/sclera: Conjunctivae normal. Pupils: Pupils are equal, round, and reactive to light. Cardiovascular Rate and Rhythm: Normal rate and regular rhythm. Pulses: Normal pulses. Heart sounds: Normal heart sounds. Pulmonary Effort: Pulmonary effort is normal. Breath sounds: Normal breath sounds. Abdominal General: Abdomen is flat. Bowel sounds are normal. Palpations: Abdomen is soft. Musculoskeletal General: Tenderness present. Cervical back: Normal range of motion and neck supple. Comments: Can not do straight leg raise on the left side Tenderness and muscle spasms in the left lumbosacral region. Skin General: Skin is warm and dry. Capillary Refill: Capillary refill takes less than 2 seconds. Neurological General: No focal deficit present. Mental Status: She is alert and oriented to person, place, and time. Psychiatric Mood and Affect: Mood normal. Behavior: Behavior normal. Thought Content: Thought content normal. Judgment: Judgment normal. I reviewed the ER visit that she went to. We discussed treatment of the back pain with radiation down her left leg she needs an x-ray to ruleout the extent of the degenerative disc disease in any compression fractures. She needs an MRI looking for herniated disc in the degree of spinal stenosis. We discussed the use of gabapentin and it may make her drowsy and we start low and workup. Discussed Naprosyn the GI renal side effects in the help with decreasing inflammation. Discussed muscle spasms. ASSESSMENT / PLAN 1. Pain Low Back Chronic Patient has been to the emergency room, she is tried chiropractic treatments, she is tried Naprosyn, and Tylenol. The back pain is getting worse she is getting more numbness and tingling down the entire left leg into her left foot. We need to do an MRI to rule out severity of herniated disc. We will start on gabapentin and discussed this with patient start at bedtime and then gradually can increase up to every 8 hours, discussed Naprosyn b.i.d., and discussed Flexeril and discussed using Flexeril at night because it may make her drowsy. However may increase the Flexeril the 1 every 8 hours iftolerated. - DX Lumbar Spine 2-3 Views; Future - cyclobenzaprine (FLEXERIL) 10 mg tablet; Take 1 tablet (10 mg total) by mouth at bedtime as needed for muscle spasms. Dispense: 30 tablet; Refill: 1 - gabapentin (NEURONTIN) 300 mg capsule; Day one to 3 -oneat hs Day 3 and 5 increase one twice a day Day 6 one every 8 hours Dispense: 90 capsule; Refill: 3 - naproxen (NAPROSYN) 500 mg tablet; Take 1 tablet (500 mg total) by mouth 2 (two) times a day withmeals. Dispense: 60 tablet; Refill: 11 - Pain Medicine - Spine consult (clinic); Future - CBC with Differential, Blood; Future - Comprehensive Metabolic Panel; Future - MR Lumbar Spine without IV Contrast; Future Discussed referral to pain management after we get the MRI for possible injection. 2. Lumbago With Sciatica Left Side Lumbago into left leg down left leg into left foot. We will continue with the Naprosyn b.i.d. and discussed renal and GI side effects. Discussed Flexeril and gabapentin. - DX Lumbar Spine 2-3 Views; Future - cyclobenzaprine (FLEXERIL) 10 mg tablet; Take 1 tablet (10 mg total) by mouth at bedtime as needed for muscle spasms. Dispense: 30 tablet; Refill: 1 - gabapentin (NEURONTIN) 300 mg capsule; Day one to 3 -oneat hs Day 3 and 5 increase one twice a day Day 6 one every 8 hours Dispense: 90 capsule; Refill: 3 - naproxen (NAPROSYN) 500 mg tablet; Take 1 tablet (500 mg total) by mouth 2 (two) times a day withmeals. Dispense: 60 tablet; Refill: 11 - Pain Medicine - Spine consult (clinic); Future - Comprehensive Metabolic Panel; Future - MR Lumbar Spine without IV Contrast; Future 3. Radiculopathy Lumbar Discussed lumbar radiculopathy is increasing and discussed the use of gabapentin. Discussed it may make her drowsy. - DX Lumbar Spine 2-3 Views; Future - cyclobenzaprine (FLEXERIL) 10 mg tablet; Take 1 tablet (10 mg total) by mouth at bedtime as needed for muscle spasms. Dispense: 30 tablet; Refill: 1 - gabapentin (NEURONTIN) 300 mg capsule; Day one to 3 -oneat hs Day 3 and 5 increase one twice a day Day 6 one every 8 hours Dispense: 90 capsule; Refill: 3 - naproxen (NAPROSYN) 500 mg tablet; Take 1 tablet (500 mg total) by mouth 2 (two) times a day withmeals. Dispense: 60 tablet; Refill: 11 - Pain Medicine - Spine consult (clinic); Future - MR Lumbar Spine without IV Contrast; Future 4. Muscle Spasm Of Back Discussed muscle spasm in the use of Flexeril and discussed it may make her drowsy. - cyclobenzaprine (FLEXERIL) 10 mg tablet; Take 1 tablet (10 mg total) by mouth at bedtime as needed for muscle spasms. Dispense: 30 tablet; Refill: 1 - Pain Medicine - Spine consult (clinic); Future 5. Screening Mammogram Breast Cancer Discussed screening mammogram and we will set up for annual wellness and gynecological exam. - BI Breast Screening Bilateral with Tomosynthesis; Future 6. Screening Cancer Colon Discussed screening for colon cancer and we will set up colonoscopy. - Colonoscopy; Future 7. Need Vaccine Immunization Herpes Zoster Discussed shingles vaccine and risks and benefits of vaccine. Also discussed flu and COVID-19 shot. - RZV: herpes zoster (SHINGRIX) vaccine (50 years and older/Immunocompromised (19 years and older)) 8. Fatigue Discussed with patient that fatigue is multifactorial however we will do labs to rule out anemia thyroid disease. - CBC with Differential, Blood; Future - Comprehensive Metabolic Panel; Future - S-TSH (Thyroid-Stimulating Hormone - Sensitive); Future 9. Wellness Screening Discussed wellness screening with doing a comprehensive and lipid and she will return for a wellness exam. - CBC with Differential, Blood; Future - Comprehensive Metabolic Panel; Future - Lipid Panel; Future - Glucose, Fasting; Future PATIENT EDUCATION Ready to learn, no apparent learning barriers were identified; learning preferences include listening. Explained diagnosis and treatment plan; patient expressed understanding of the content, discussed at length. All questions answered. Plan will set up for MRI of the lumbosacral spine referral to pain management. Discussed gabapentin, Flexeril, Naprosyn. See prescriptions written. We will return in 4-6 weeks to get a gynecological and wellness exam and Pap. Kathia Montoya D.O. [id number], 50 minutes, reviewed ER report,. Wrote for Flexeril, Naprosyn and gabapentin. Reviewed past medical history and charts. ISHER APPRENTICE documented in this encounter Plan of Treatment Scheduled Orders Name Type Priority Associated Diagnoses Order Schedule BI Breast Screening Bilateral with Tomosynthesis Imaging RAD - Routine (most inpatients and all outpatients) Screening Mammogram Breast Cancer Expected: 09/17/2023 (Approximate), Expires: 12/18/2024 CBC with Differential, Blood Lab Routine Pain Low Back Chronic Fatigue Wellness Screening Expected: 09/17/2023 (Approximate), Expires: 12/18/2024 Comprehensive Metabolic Panel Lab Routine Pain Low Back Chronic Lumbago With Sciatica Left Side Fatigue Wellness Screening Expected: 09/17/2023 (Approximate), Expires: 12/18/2024 Lipid Panel Lab Routine Wellness Screening Expected: 09/17/2023 (Approximate), Expires: 12/18/2024 S-TSH (Thyroid-Stimulating Hormone - Sensitive) Lab Routine Fatigue Expected: 09/17/2023 (Approximate), Expires: 12/18/2024 Glucose, Fasting Lab Routine Wellness Screening Expected: 09/17/2023 (Approximate), Expires: 12/18/2024 Scheduled Referrals Name Type Priority Associated Diagnoses Orde r Schedule Pain Medicine - Spine consult (clinic) Outpatient Referral Routine Pain Low Back Chronic Lumbago With Sciatica Left Side Radiculopathy Lumbar Muscle Spasm Of Back Expected: 09/17/2023 (Approximate), Expires: 12/18/2024 Family Medicine office visit (clinic) Outpatient Referral Routine Expected: 09/17/2023 (Approximate), Expires: 12/18/2024 documented as of this encounter Results * MR Lumbar Spine without IV Contrast (10/07/2023 2:10 PM VARNISHER APPRENTICE) Anatomical Region Laterality Modality Lumbar Spine, Neuroradiology [facility]ST [facility], Neuroradiology ARZ [facility], Neuroradiology FLA [facility] N/A Magnetic Resonance 10/07/2023 2:37 PM VARNISHER APPRENTICE Impressions 10/07/2023 2:45 PM VARNISHER APPRENTICE 1. Left central disc extrusion at L5-S1 results in effacement of the left lateral recess and mass effect on the traversing left S1 nerve root. Narrative 10/07/2023 2:45 PM VARNISHER APPRENTICE EXAM: ??MR LUMBAR SPINE WITHOUT IV CONTRAST [...] the traversing left S1 nerve root. Kathia HOUGH MRI PROCEDURES * DX Lumbar Spine 2-3 Views (09/17/2023 9:28 AM VARNISHER APPRENTICE) Anatomical Region Laterality Modality Lumbar Spine, Musculoskeleta l RST LOS, Neuroradiology ARZ LOS, Muskuloskeletal FLA LOS N/A Digital Radiography 09/17/2023 9:32 AM VARNISHER APPRENTICE Impressions 09/17/2023 9:34 AM VARNISHER APPRENTICE Images are interpreted without comparison. 5 lumbar type vertebral bodies are noted. Minor levoconvex curvature. Maintenance of the usual lumbar lordosis. No listhesis. Vertebral body heights are normal. Minor intervertebral disc height loss L5-S1. No acute abnormality. Narrative 09/17/2023 9:34 AM VARNISHER APPRENTICE EXAM: DX LUMBAR SPINE 2-3 VIEWS Procedure Note Otis Bililngs M.D. - 09/17/2023 EXAM: DX LUMBAR SPINE 2-3 VIEWS IMPRESSION: Images are interpreted without comparison. 5 lumbar type vertebral bodiesare noted. Minor levoconvex curvature. Maintenance of the usual lumbarlordosis. No listhesis. Vertebral body heights are normal. Minorintervertebral disc height loss L5-S1. No acute abnormality. Kathia Montoya D.O. IMG DIAGNOSTIC IMAGI NG PROCEDURES documented in this encounter Visit Diagnoses Diagnosis Pain Low Back Chronic- Primary Lumbago With Sciatica Left Side Radiculopathy Lumbar Muscle Spasm Of Back Screening Mammogram Breast Cancer Screening Cancer Colon Need Vaccine Immunization Herpes Zoster Fatigue Wellness Screening Pain Low Back Chronic Lumbago With Sciatica Left Side Radiculopathy Lumbar Pain Low Back Chronic Lumbago With Sciatica Left Side Radiculopathy Lumbar documented in this encounter Additional Health Concerns Assessment Noted Time PHQ-9 Depression Total Score: 1 09/17/20 8:10 AM VARNISHER APPRENTICE documented as of this encounter Care Teams Paint Process Engineer Relationship Specialty Start Date End Date Kathia Montoya D.O. [address] [place] [phone] PCP - General Family Medicine 09/05/23 documented as of this encounter
--- OUTSIDE RECORDS SUMMARY | 2023-12-17 10:26 | XMS_ITS | Encounter Summary ---
Author Name Unknown Organization [facility] Address [address] [place] [address] Care Team Providers Care Service Attendant Name Role Phone Kathia Montoya D.O. Primary Care Provider Reason for Visit * Reason Comments Spasms Encounter Details Date Type Department Care Team (Late st Contact Info) Description 09/08/2023 5:32 AM ROLL EXAMINER - 09/08/2023 6:28 PM ROLL EXAMINER Emergency [facility] [address] [place] [phone] Pain Leg Right (Primary Dx) Discharge Disposition: Home or Self [...] 09/03/2023 09/17/2023 documented as of this encounter Plan of Treatment Not on file documented as of this encounter Visit Diagnoses Diagnosis Pain Leg Right- Primary documented in this encounter Additional Health Concerns Assessment Noted Time PHQ-9 Depression Total Score: 6 09/30/20 12 2:01 PM ROLL EXAMINER documented as of this encounter Care Teams Service Attendant Relationship Specialty Start Date End Date Kathia Montoya D.O. [address] [place] [phone] PCP - General Family Medicine 09/05/23 documented as of this encounter
--- OUTSIDE RECORDS SUMMARY | 2023-12-17 10:26 | XMS_ITS ---
Author Name Unknown Organization [facility] Address [address] [place] [address] Care Team Providers Care Medical Staffing Coordinator Name Role Phone Unavailable Unavailable Unavailable Surgery Details Not on file Complications Check Surgery Details section. Procedure Estimated Blood Loss Check Surgery Details section. Procedure Findings Check Surgery Details section. Procedure Specimens Taken Check Surgery Details section.
--- OUTSIDE RECORDS SUMMARY | 2023-12-17 10:26 | XMS_ITS | Encounter Summary ---
Author Name Unknown Organization [facility] Address [address] [place] [address] Care Team Providers Care Appraisal Analyst Name Role Phone Kathia Montoya D.O. Primary Care Provider Reason for Referral * Outpatient (Routine) - Closed Specialty Diagnoses / Procedures Referred By Alexysac t Referred To Contact Diagnoses Pain Low Back Chronic Lumbago With Sciatica Left Side Radiculopathy Lumbar Procedures DX Lumbar Spine 2-3 Views Kathia Montoya D.O. [address] [place] [phone] [facility] Region Referral ID Status Reason Start Date Expiration Date Visits Re quested Visits Authorized [id number] Closed 09/17/2023 09/16/2024 1 1 ENTARY SUBSTITUTE TEACHER Reason for Visit * Outpatient (Routine) - Closed Specialty Diagnoses / Procedures Referred By Contac t Referred To Contact Diagnoses Pain Low Back Chronic Lumbago With Sciatica Left Side Radiculopathy Lumbar Procedures DX Lumbar Spine 2-3 Views Kathia Montoya D.O. [address] [place] [phone] [facility] Region Referral ID Status Reason Start Date Expiration Date Visits Re quested Visits Authorized [id number] Closed 09/17/2023 09/16/2024 1 1 Encounter Details Date Type Department Care Team (Latest Contact Info) Description 09/17/2023 9:14 AM ELEMENTARY SUBSTITUTE TEACHER - 09/17/2023 11:59 PM ELEMENTARY SUBSTITUTE TEACHER Hospital Encounter Department of Radiology in [place], [place] [address] [place] [phone] Kathia Montoya D.O. [address] [place] [phone] Pain Low Back Chronic; Lumbago With Sciatica [...] 09/03/2023 12/02/2023 documented as of this encounter Plan of Treatment Not on file documented as of this encounter Procedures Procedure Name Priority Date/Time Associated Diagnosis Comments DX LUMBAR SPINE 2-3 VIEWS RAD - Routine (most inpatients and all outpatients) 09/17/2023 9:28 AM ELEMENTARY SUBSTITUTE TEACHER Pain Low Back Chronic Lumbago With Sciatica Left Side Radiculopathy Lumbar documented in this encounter Results * DX Lumbar Spine 2-3 Views (09/17/2023 9:28 AM ELEMENTARY SUBSTITUTE TEACHER) Anatomical Region Laterality Modality Lumbar Spine, Musculoskeleta l RST LOS, Neuroradiology ARZ LOS, Muskuloskeletal FLA LOS N/A Digital Radiography 09/17/2023 9:32 AM ELEMENTARY SUBSTITUTE TEACHER Impressions 09/17/2023 9:34 AM ELEMENTARY SUBSTITUTE TEACHER Images are interpreted without comparison. 5 lumbar type vertebral bodies are noted. Minor levoconvex curvature. Maintenance of the usual lumbar lordosis. No listhesis. Vertebral body heights are normal. Minor intervertebral disc height loss L5-S1. No acute abnormality. Narrative 09/17/2023 9:34 AM ELEMENTARY SUBSTITUTE TEACHER EXAM: DX LUMBAR SPINE 2-3 VIEWS Procedure Note Otis Billings M.D. - 09/17/2023 EXAM: DX LUMBAR SPINE 2-3 VIEWS IMPRESSION: Images are interpreted without comparison. 5 lumbar type vertebral bodiesare noted. Minor levoconvex curvature. Maintenance of the usual lumbarlordosis. No listhesis. Vertebral body heights are normal. Minorintervertebral disc height loss L5-S1. No acute abnormality. Kathia HOUGH DIAGNOSTIC IMAGI NG PROCEDURES documented in this encounter Visit Diagnoses Diagnosis Pain Low Back Chronic Lumbago With Sciatica Left Side Radiculopathy Lumbar documented in this encounter Additional Health Concerns Assessment Noted Time PHQ-9 Depression Total Score: 1 09/17/20 23 8:10 AM ELEMENTARY SUBSTITUTE TEACHER documented as of this encounter Care Teams Appraisal Analyst Relationship Specialty Start Date End Date Kathia Montoya D.O. [address] [place] [phone] PCP - General Family Medicine 09/05/23 documented as of this encounter
--- OUTSIDE RECORDS SUMMARY | 2023-12-17 10:26 | XMS_ITS | Encounter Summary ---
Author Name Unknown Organization [facility] Address [address] [place] [address] Care Team Providers Care Service Delivery Consultant Name Role Phone Kathia Montoya D.O. Primary Care Provider Reason for Referral * Outpatient (Routine) - Pending Review Specialty Diagnoses / Procedures Referred By Melvina lambert Referred To Contact Diagnoses Screening Cancer Colon Procedures Colonoscopy Kathia Montoya D.O. [address] [place] [address] [facility] Region Referral ID Status Reason Start Date Expiration Date V isits Requested Visits Authorized [id number] Pending Review 10/18/2023 10/17/2024 1 1 OR BIOSTATISTICIAN Encounter Details Date Type Department Care Team (Late st Contact Info) Description 10/17/2023 Clinical Communication Department of Family Medicine, [facility], in [place], [place] [address] [place] [address] Kathia Montoya D.O. [address] [place] [address] Social History Tobacco Use Types [...] encounter Miscellaneous Notes * Telephone Encounter - Kathia Montoya D.O. - 10/18/2023 11:42 AM SENIOR BIOSTATISTICIAN Needs screening colonoscopy. Wants in [place]. Form filled out and put in nurse's box. OR BIOSTATISTICIAN documented in this encounter Plan of Treatment Scheduled Orders Name Type Priority Associated Diagnoses Orde r Schedule Colonoscopy GI Routine Screening Cancer Colon Expected: 10/18/2023 (Approximate), Expires: 01/16/2025 documented as of this encounter Visit Diagnoses Diagnosis Screening Cancer Colon- Primary documented in this encounter Additional Health Concerns Assessment Noted Time PHQ-9 Depression Total Score: 1 09/17/20 8:10 AM SENIOR BIOSTATISTICIAN documented as of this encounter Care Teams Service Delivery Consultant Relationship Specialty Start Date End Date Kathia Montoya D.O. [address] [phone] PCP - General Family Medicine 09/05/23 documented as of this encounter
--- OUTSIDE RECORDS SUMMARY | 2023-12-17 10:26 | XMS_ITS | Encounter Summary ---
Author Name Unknown Organization [facility] Address [address] [place] [address] Care Team Providers Care Equine Intern Name Role Phone Kathia Montoya D.O. Primary Care Provider Encounter Details Date Type Department Care Team (Late st Contact Info) Description 10/18/2023 Orders Only Department of Family Medicine, [facility], in [place], [place] [address] [place] [address] Kathia Montoya D.O. [address] [place] [address] Social History Tobacco Use Types [...] Depression Total Score: 1 09/17/20 8:10 AM BLUEPRINT ASSEMBLER documented as of this encounter Care Teams Equine Intern Relationship Specialty Start Date End Date Kathia Montoya D.O. [address] [place] [phone] PCP - General Family Medicine 09/05/23 documented as of this encounter
--- OUTSIDE RECORDS SUMMARY | 2023-12-17 10:26 | XMS_ITS | Referral Summary ---
Author Name Unknown Organization [facility] Address [address] [place] [address] Care Team Providers Care Food And Drug Research Scientist Name Role Phone Kathia MontoyaOMaryse Primary Care Provider [phone] Source Comments Patient records contain information from all sites at [facility]. For routine questions regarding patient records, call [phone] during business hours, M-F 8:00 AM - 5:00 PM Central Time. Record requests for emergency care only can be directed to [phone] at any time.[facility] Encounters Date Type Department Care Team Description 10/18/2023 Orders Only Department of Family Medicine, [facility] [place] [facility], in [place], [place] [address] [phone] Katiha Montoya D.O. 10/17/2023 Clinical Communication Department of Family Medicine, [facility] [place] [facility], in [place], [place] [address] [place] [phone] Kathia Montoya D.O. 10/11/2023 Orders Only Department of Pain Medicine in [place], [place] [address] [place] [phone] Fidelina Gomez R.N. Pain Low Back Chronic (Primary Dx) 10/07/2023 12:53 PM PLANT TECHNICIAN/CONTROL ROOM OPERATOR - 10/07/2023 11:59 PM PLANT TECHNICIAN/CONTROL ROOM OPERATOR Hospital Encounter Department of Radiology in [place], [place] [address] [place] [phone] Kathia Montoya D.O. Pain Low Back Chronic; Lumbago With Sciatica Left Side; Radiculopathy Lumbar Discharge Disposition: Home or Self Care 09/17/2023 9:14 AM PLANT TECHNICIAN/CONTROL ROOM OPERATOR - 09/17/2023 11:59 PM PLANT TECHNICIAN/CONTROL ROOM OPERATOR Hospital Encounter Department of Radiology in [place], [place] [address], [place] [address] Kathia Montoya D.O. Pain Low Back Chronic; Lumbago With Sciatica Left Side; Radiculopathy Lumbar Discharge Disposition: Home or Self Care 09/17/2023 8:30 AM PLANT TECHNICIAN/CONTROL ROOM OPERATOR Office Visit Department of Family Medicine, [facility] [place] [facility], in [place], [place] [address] [place] [phone] Kathia Montoya D.O. Pain Low Back Chronic (Primary Dx); Lumbago With Sciatica Left Side; Radiculopathy Lumbar; Muscle Spasm Of Back; Screening Mammogram Breast Cancer; Screening Cancer Colon; Need Vaccine Immunization Herpes Zoster; Fatigue; Wellness Screening from Last 3 Months Allergies No known active allergies Medications Medication [...] One Episode Mild 08/16/2009 Overview: DEPRESS DISORDER-MILD Immunizations Name Administration Dates Next Due DTaP (Infanrix, Tripedia) 03/02/2008 Influenza, Unspecified 09/15/2007 RZV (SHINGRIX) 09/17/2023 Td (Adult), adsorbed 03/02/2008 Social History Tobacco Use Types Packs/Day Years [...] Comments Blood Pressure 120/85 09/17/2023 8:11 AM PLANT TECHNICIAN/CONTROL ROOM OPERATOR Pulse 98 09/17/2023 8:11 AM PLANT TECHNICIAN/CONTROL ROOM OPERATOR Temperature 36.1 ??C (96.9 ??F) 09/17/2023 8:11 AM CS T Respiratory Rate 14 09/17/2023 8:11 AM PLANT TECHNICIAN/CONTROL ROOM OPERATOR Oxygen Saturation 99% 09/03/2023 9:44 AM CDT Inhaled Oxygen Concentration - - Weight 75.6 kg (166 lb 10.7 oz) 09/17/2023 8:11 AM PLANT TECHNICIAN/CONTROL ROOM OPERATOR Height 164 cm (5' 4.57) 09/17/2023 8:11 AM PLANT TECHNICIAN/CONTROL ROOM OPERATOR Body Mass Index 28.11 09/17/2023 8:11 AM PLANT TECHNICIAN/CONTROL ROOM OPERATOR Plan of Treatment Not on file Procedures Procedure Name Priority Date/Time Associated Diagnosis Comments MR LUMBAR SPINE WITHOUT IV CONTRAST RAD - Routine (most inpatients and all outpatients) 10/07/2023 2:10 PM PLANT TECHNICIAN/CONTROL ROOM OPERATOR Pain Low Back Chronic Lumbago With Sciatica Left Side Radiculopathy Lumbar DX LUMBAR SPINE 2-3 VIEWS RAD - Routine (most inpatients and all outpatients) 09/17/2023 9:28 AM PLANT TECHNICIAN/CONTROL ROOM OPERATOR Pain Low Back Chronic Lumbago With Sciatica Left Side Radiculopathy Lumbar from Last 3 Months Results * MR Lumbar Spine without IV Contrast (10/07/2023 2:10 PM PLANT TECHNICIAN/CONTROL ROOM OPERATOR) Anatomical Region Laterality Modality Lumbar Spine, Neuroradiology RST LOS, Neuroradiology ARZ LOS, Neuroradiology FLA LOS N/A Magnetic Resonance 10/07/2023 2:37 PM PLANT TECHNICIAN/CONTROL ROOM OPERATOR Impressions 10/07/2023 2:45 PM PLANT TECHNICIAN/CONTROL ROOM OPERATOR 1. Left central disc extrusion at L5-S1 results in effacement of the left lateral recess and mass effect on the traversing left S1 nerve root. Narrative 10/07/2023 2:45 PM PLANT TECHNICIAN/CONTROL ROOM OPERATOR EXAM: ??MR LUMBAR SPINE WITHOUT IV CONTRAST [...] Lumbar Spine 2-3 Views (09/17/2023 9:28 AM PLANT TECHNICIAN/CONTROL ROOM OPERATOR) Anatomical Region Laterality Modality Lumbar Spine, Musculoskeleta l RST LOS, Neuroradiology ARZ LOS, Muskuloskeletal FLA LOS N/A Digital Radiography 09/17/2023 9:32 AM PLANT TECHNICIAN/CONTROL ROOM OPERATOR Impressions 09/17/2023 9:34 AM PLANT TECHNICIAN/CONTROL ROOM OPERATOR Images are interpreted without comparison. 5 lumbar type vertebral bodies are noted. Minor levoconvex curvature. Maintenance of the usual lumbar lordosis. No listhesis. Vertebral body heights are normal. Minor intervertebral disc height loss L5-S1. No acute abnormality. Narrative 09/17/2023 9:34 AM PLANT TECHNICIAN/CONTROL ROOM OPERATOR EXAM: DX LUMBAR SPINE 2-3 VIEWS Procedure [...] PROCEDURES from Last 3 Months Care Teams Food And Drug Research Scientist Relationship Specialty Start Date End Date Kathia Montoya D.O. [address] [place] [phone] PCP - General Family Medicine 09/05/23
--- OUTSIDE RECORDS SUMMARY | 2023-12-17 10:27 | XMS_ITS | Clinical Summary ---
Author Name Unknown Organization [facility] Address [place], [place] [address] Care Team Providers Care Lining Cementer Name Role Phone Pcp, No Primary Care Provider Unavailabl e Allergies No known active allergies Medications Medication Sig Dispensed Refills Start Date End Date Status cyclobenzaprine (FLEXERIL) 10 mg tabletIndications :Right leg pain Take 1 Tablet (10 mg) by mouth three times daily. 15 Tablet 0 09/08/2023 Active benzonatate (TESSALON) 100 mg capsuleIndication s:Bronchitis Take 1 capsule by mouth 3 times daily if needed for Cough. 21 capsule 0 01/05/2019 11/18/2023 Discontinued (*Patient states no longer taking) albuterol HFA 90 mcg/actuation inhalerIndication s:Bronchitis Inhale 1-2 Puffs by mouth every 4 hours if needed. 18 g 0 01/05/2019 11/18/2023 Discontinued (*Patient states no longer taking) Active Problems Problem Noted Date Diagnosed Date Pap smear for cervical cancer screening 11/27/19 Overview: 11/2023 NIL/HPV Negative Plan: Pap and HPV due 11/2028 Encounters Date Type Department Care Team Description 12/17/2023 Travel 11/29/2023 Orders Only [facility] Scanner 1 scan: (1-Ord) INCOMING RECORDS-, [facility], 11/29/2023 11/29/2023 Orders Only [facility] Scanner 1 scan: (1-Ord) INCOMING RECORDS-, [facility], 11/29/2023 11/27/2023 Orders Only [facility] Scanner 1 scan: (1-Ord) INCOMING RECORDS-, [facility], 11/27/2023 11/26/2023 Transcribe Orders [facility] [address] [place] [address] Arsalan Franklin MD 11/18/2023 8:50 AM BUILDING ADMIN Office Visit [facility] [address] [place] [place] [phone] Agusto Payton MD Physical 11/18/2023 Travel 10/07/2023 Orders Only [facility] Scanner 1 scan: (1-Ord) KRITSYN, MR LUMBAR SPINE WO, 10/07/2023 from Last 3 Months Family History Medical History Relation Name Comments Alcoholism Father Cancer Other breast Cancer-colon Other Other Sister suicide Asthma Son Relation Name Status Comments Father (Age 35) Mother Alive Other Sister Son Social History Tobacco Use Types Packs/Day Years Used Date Smoking Tobacco: Former Smokeless Tobacco: Never Alcohol Use Standard Drinks/Week Comments Yes 1 (1 standard drink = 0.6 oz pur e alcohol) once a month PHQ-2 Answer Date Recorded PHQ-2 TOTAL SCORE 0 11/18/2023 Social Connections Answer Date Recorded Frequency of Communication with Friends and Fami ly Not on file 11/18/2023 Sex and Gender Information Value Date Recorded Sex Assigned at Not on file Gender Identity Not on file Sexual Orientation Not on file Travel History Travel Start Travel End [place] 12/10/2023 12/15/2023 Obstetrics History Last Filed Vital Signs Vital Sign Reading Time Taken Comments Blood Pressure 136/80 11/18/2023 9:06 AM BUILDING ADMIN Pulse 80 11/18/2023 9:06 AM BUILDING ADMIN Temperature 36.7 ??C (98.1 ??F) 09/08/2023 5:45 AM CS T Respiratory Rate 16 11/18/2023 9:06 AM BUILDING ADMIN Oxygen Saturation 97% 09/08/2023 6:24 AM BUILDING ADMIN Inhaled Oxygen Concentration - - Weight 76.7 kg (169 lb) 11/18/2023 9:06 AM BUILDING ADMIN Height 164.6 cm (5' 4.8) 11/18/2023 9:06 AM BUILDING ADMIN Body Mass Index 28.3 11/18/2023 9:06 AM BUILDING ADMIN Plan of Treatment Upcoming Encounters Date Type Department Care Team (Late st Contact Info) Description 12/17/2023 11:00 AM BUILDING ADMIN Office Visit [facility] [address] [place] [phone] Arsalan Franklin MD [address] [place] [address] Arrived 12/23/2023 10:40 AM BUILDING ADMIN Appointment [facility] [address] [place] [address] Health Maintenance Due Date Last Done Comments COVID-19 vaccine series (#1) 1973 Tdap 1984 HIV for age 15-65 1988 Tetanus booster 1993 Colonoscopy through age 75 2018 Mammogram for age 45-75 05/02/2022 05/02/20 21, 05/02/2021, 05/02/2021, Additional history exists Zoster (shingles) series for age 50+ (1 of 2) 2023 Influenza for age 50-64 07/05/2023 BMI (ht and wt on same day) for age 18+ 11/18/2024 11/18/2023, 01/05/2019 Depression screening for age 12+ 11/18/2024 11/18/2023 Lipids for age 45-75 11/18/2028 11/18/2023 Pap test for age 21-65 11/18/2028 , 11/18/2023, 03/17/2020, Additional history exists Hepatitis C screening for age 18-79 Completed 11/18/2023 Pneumococcal series for age 6-64 Aged Out No longer eligible based on patient's age to complete this topic Procedures Procedure Name Priority Date/Time Associated Diagnosis Comments AMB EPIDURAL STEROID INJECTION Routine 12/17/2023 8:01 AM BUILDING ADMIN Spinal stenosis, lumbar region, with neurogenic claudication SCAN CORRESP-IMAGING 11/29/2023 12:00 AM BUILDING ADMIN SCAN CORRESP-IMAGING 11/29/2023 12:00 AM BUILDING ADMIN SCAN CORRESP-IMAGING 11/27/2023 12:00 AM BUILDING ADMIN EXHIBITS COORDINATOR THIN PREP PAP SCREEN IMAGED Routine 11/18/2023 10:30 AM BUILDING ADMIN Screening for cervical cancer HPV THIN PREP Routine 11/18/2023 10:30 AM BUILDING ADMIN Screening for cervical cancer ANTI HCV Routine 11/18/2023 10:13 AM BUILDING ADMIN Encounter for hepatitis C screening test for low risk patient GLUCOSE, RANDOM Routine 11/18/2023 10:13 AM BUILDING ADMIN Screening for diabetes mellitus (DM) LIPID PANEL W REFLEX MEASURED LDL Routine 11/18/2023 10:13 AM BUILDING ADMIN Screening for lipid disorders SCAN-MRI INTERPRETATION 10/07/2023 12:00 AM BUILDING ADMIN from Last 3 Months Results * SCAN CORRESP-IMAGING (11/29/2023 12:00 AM BUILDING ADMIN) Only the most recent of3 resultswithin the time period is included. Anatomical Region Laterality Modality Other Scanner OTHER * EXHIBITS COORDINATOR THIN PREP PAP SCREEN IMAGED [[id number]] (11/18/2023 10:30 AM BUILDING ADMIN) Case Report Gynecologic Cytology Report ? Case: [id number] ? Authorizing Provider: ??Agusto Payton, ?? Collected: ? 11/18/2023 1030 ? MD ? Ordering Location: ? [facility] ?Received: ?11/18/2023 1030 ? Clinic ? First Screen: ?Erika Gonzalez ? Rescreen: ?Lauren Del Cid ? Specimen: ?EXHIBITS COORDINATOR ThinPrep Vial Screening, Cervical ? 11/27/2023 2:04 PM BUILDING ADMIN [facility] INTERPRETATION/ RESULT NEGATIVE FOR INTRAEPITHELIAL LESION OR MALIGNANCY (NIL) (none) 11/27/2023 2:04 PM BUILDING ADMIN [facility] IMEN ADEQUACY Satisfactory for evaluation Endocervical component present 11/27/2023 2:04 PM BUILDING ADMIN [facility] HPV REQUEST HPV and PAP 11/27/2023 2:04 PM BUILDING ADMIN [facility] Date of LMP 04/202311/27/2023 2:04 PM BUILDING ADMIN [facility] Last Pap Date 03/17/20 11/27/2023 2:04 PM BUILDING ADMIN [facility] Last Pap Result NIL 2:04 PM BUILDING ADMIN [facility] Abnormal Pap or [place] Bx in last 5 years No 11/27/2023 2:04 PM BUILDING ADMIN [facility] Menstrual Status Postmenopausal 11/27/2023 2:04 PM BUILDING ADMIN [facility] [place] Bx Done Today No 11/27/2023 2:04 PM BUILDING ADMIN [facility] Additional Information None given 11/27/2023 2:04 PM BUILDING ADMIN [facility] Comment: Cytology is screened at [facility] - [address], [place] [address] and [facility] - [address], [place] [address] and [facility] - [address] [place] [address] Interpreted at [facility] - [address], [place] [address] Automated Review Successful 11/27/2023 2:04 PM [facility] Comment:Specimen processed s uccessfully by automated care navigator device, ThinPrep Imaging System, [employer] ANCILLARY TESTING EXHIBITS COORDINATOR HPV Ordered, Please see separate report 11/27/2023 2:04 PM [facility] Note The pap test is a screening technique, not a diagnostic procedure. It is used primarily to screen for squamous cancers and precursor lesions. Published studies have shown that it is subject to both false negative and false positive results. The pap test should not be used as the sole means to diagnose or exclude pre-malignant and malignant lesions. 11/27/2023 2:04 PM [facility] Other (Cervical) Non-Blood / Unknown 11/18/2023 10:30 AM BUILDING ADMIN 11/18/2023 10:30 AM BUILDING ADMIN Agusto Payton MD PATHOLOGY/CYTO LOGY Performing Organization Address [facility]/ZIP Co de Phone Number [facility] [address] [place] [address], * HPV HIGH RISK (11/18/2023 10:30 AM BUILDING ADMIN) TYPE 16 Negative Negative 11/21/2023 2:28 PM BUILDING ADMIN [facility] TYPE 18 Negative Negative 11/21/2023 2:28 PM BUILDING ADMIN [facility] TRAL LAB[facility] OTHER HIGH RISK TYPES Negative Negative 11/21/2023 2:28 PM BUILDING ADMIN [facility] Other (Cervical) Non-Blood / Unknown 11/18/2023 10:30 AM BUILDING ADMIN 11/19/2023 5:13 PM BUILDING ADMIN Narrative [facility] - 11/21/2023 2:28 PM BUILDING ADMIN HPV types 16, 18, 31, 33, 35, 39, 45, 51, 52, 56, 58, 59, 66 and 68 DNA were undetectable or below the pre-set threshold. Methodology: Rachael Catrachito 4800 HPV Test Agusto Payton MD MICROBIOLOGY Performing Organization Address [facility] Co de Phone Number [facility] [address] [place] [address], * (ABNORMAL) LIPID PANEL W REFLEX MEASURED LDL [[id number]] (11/18/2023 10:13 AM BUILDING ADMIN) CHOLESTEROL,TOTAL 213(H) 100 - 199 mg/dL 11/18/2023 10:43 AM [facility] Comment: Cholesterol, Total Reference Ranges Desirable <200 mg/dL Borderline 200-239 mg/dL High >=240 mg/dL TRIGLYCERIDES 148 <150 mg/dL 11/18/2023 10:43 AM [facility] HDL CHOLESTEROL 77 >40 mg/dL 10:43 AM [facility] NON-HDL CHOLESTEROL 136 <145 mg/dl 11/18/2023 10:43 AM [facility] CHOL/HDL RATIO 2.77 <4.50 11/18/2023 10:43 AM [facility] LDL CHOLESTEROL 106 <=130 mg/dL 11/18/2023 10:43 AM [facility] VLDL CHOLESTEROL 30 <=30 mg/dL 11/18/2023 10:43 AM [facility] PROVIDER ORDERED STATUS RANDOM 11/18/2023 10:43 AM [facility] Blood BLOOD SPECIMEN / Unknown Venipuncture / Unknown 11/18/2023 10:13 AM BUILDING ADMIN 11/18/2023 10:14 AM BUILDING ADMIN Agusto Payton MD CHEMISTRY [facility] [address] [place] [address] * GLUCOSE, RANDOM (11/18/2023 10:13 AM BUILDING ADMIN) GLUCOSE,RANDOM 101 70 - 139 mg/dL 11/18/2023 10:43 AM [facility] Blood BLOOD SPECIMEN / Unknown Venipuncture / Unknown 11/18/2023 10:13 AM BUILDING ADMIN 11/18/2023 10:14 AM BUILDING ADMIN Agusto Payton MD CHEMISTRY Performing Organization Address City/[facility]/ZIP Co de Phone Number [facility] [address] [place] [address] * ANTI HCV (11/18/2023 10:13 AM BUILDING ADMIN) HEPATITIS C ANTIBODY Non-Reacti ve Non-React faiza 11/18/2023 10:35 PM [facility] [facility]OR[facility] Comment:Please note, per www .CDC.gov: If a patient is known to be at high risk of HCV infection, or is symptomatic, and the physician's suspicion of HCV infection is high, HCV RNA testing is often employed and is of diagnostic value, even after an initial negative anti-HCV test result. Blood BLOOD SPECIMEN / Unknown Venipuncture / Unknown 11/18/2023 10:13 AM BUILDING ADMIN 11/18/2023 10:14 AM BUILDING ADMIN Agusto Payton MD SEND OUTS [facility] [address] [place] [address], * SCAN-MRI INTERPRETATION (10/07/2023 12:00 AM BUILDING ADMIN) Anatomical Region Laterality Modality Other Scanner OTHER from Last 3 Months Care Teams Lining Cementer Relationship Specialty Start Date End Date Pcp, No . PCP - General 04/04/16
== END 2023-12-17 10:22 | disposition home or self-care (01) ==
LOC: INJ CL 10:24
PROVIDERS: PCP Family Medicine; Visit Provider Family Medicine
DX: M54.16 Radiculopathy, lumbar region (principal); M51.26 Other intervertebral disc displacement, lumbar region
CPT/HCPCS: 64483; J1100; Q9966